=== PATIENT | female | born 1990 | race African-American/Black ===

== ENCOUNTER 2018-07-22 10:36 | Emergency (ER) | payer OTHER ==
[~2018-07-22] VITALS: Ht 165.1 cm; Wt 77.7 kg
[2018-07-22] MEDS ORDERED: CYCLOBENZAPRINE HCL 10 MG TABLET PO ONE (11:00)
[2018-07-22] MEDS ORDERED: IBUPROFEN 600 MG TABLET PO ONE (11:00)
[2018-07-22] MEDS ORDERED: LIDOCAINE 5% TRANSDERMAL PATCH TD ONE (11:00)
[2018-07-22 12:20] VITALS: BP 134/88
== END 2018-07-22 12:29 | disposition home or self-care (01) ==
LOC: EMS 10:38
DX: M54.5 Low back pain (principal); W18.39XA Other fall on same level, initial encounter; Y93.89 Activity, other specified; Y92.89 Other specified places as the place of occurrence of the external cause; Y99.8 Other external cause status